=== PATIENT | male | born 1945 ===

== ENCOUNTER 2016-12-09 11:53 | Emergency (ER) | payer BC, MEDICARE ==
--- NOTE | 2016-12-09 12:07 | Emergency Department Record ---
History of Present Illness - General Chief Complaint: Hypertension Stated Complaint: HYPERTENSION Time Seen by Provider: 12/09/16 12:01 Source: Patient Mode of Arrival: Ambulatory Limitations: No limitations - History of Present Illness Initial Comments: 71 yo male presents with a concern about his blood pressure. He based that on not feeling well since Friday of last week. He has had some cough, some lightheadedness. No chest pain. He is not short of breath. He has had some loss of appetite. He states he tried to check his own pulse and could not find it. No history of CAD or abnormal heart heart rhythms. No history of ever having a stress test. His PCP is Dr Pinzon. No back or abdominal pain. No edema. MD Complaint: Lightheadedness -: Days(s) Timing: Unsure Description: Lightheadedness, Nausea History of Same: No History of Trauma: No Severity: Moderate Improves With: Remaining still, Rest Worsens With: Nothing Associated Symptoms: Denies other symptoms - Julio Coma Scale Eye Response: (4) Open spontaneously Motor Response: (6) Obeys commands Verbal Response: (5) Oriented Huger Total: 15 - Related Data Home Medications Medication Instructions Recorded Confirmed Last Taken Allopurinol [Allopurinol] 400 mg PO DAILY 12/09/16 12/09/16 12/08/16 Amlodipine Besylate [Norvasc] 5 mg PO DAILY 12/09/16 12/09/16 12/08/16 Aspirin 81 mg PO DAILY 12/09/16 12/09/16 12/08/16 Fenofibrate Nanocrystallized 145 mg PO DAILY 12/09/16 12/09/16 12/08/16 [Tricor] Losartan Potassium [Losartan 100 mg PO DAILY 12/09/16 12/09/16 12/08/16 Potassium] Simvastatin [Zocor] 10 mg PO DAILY 12/09/16 12/09/16 12/08/16 Allergies Allergy/AdvReac Type Severity Reaction Status Date / Time No Known Drug Allergies Allergy Verified 12/09/16 12:05 Review of Systems Constitutional: Denies: Chills, Fever, Malaise, Night sweats, Weakness Eyes: Denies: Eye discharge ENT: Denies: Congestion, Throat pain Respiratory: Reports: Cough, Dyspnea. Denies: Hemoptysis, Stridor, Wheezes Cardiovascular: Denies: Arrhythmia, Chest pain, Dyspnea on exertion, Edema, Palpitations, Syncope Endocrine: Denies: Fatigue, Polydipsia, Polyuria Gastrointestinal: Reports: Nausea. Denies: Abdominal pain, Diarrhea, Vomiting Genitourinary: Denies: Dysuria, Frequency, Hematuria Musculoskeletal: Denies: Arthralgia, Back pain, Neck pain Skin: Denies: Bruising, Change in color, Pruritus Neurological: Denies: Headache, Numbness, Vertigo, Weakness Psychiatric: Denies: Anxiety Hematological/Lymphatic: Denies: Blood Clots, Easy bleeding, Easy bruising, Swollen glands Physical Exam - General General Appearance: Alert, Oriented x3, Cooperative, No acute distress Limitations: No limitations - Head Head exam: Atraumatic, Normocephalic, Normal inspection - Eye Eye exam: Normal appearance, PERRL. negative: Conjunctival injection, Periorbital swelling - ENT ENT exam: Normal exam, Mucous membranes moist Ear exam: Normal external inspection Nasal Exam: Normal inspection Mouth exam: Normal external inspection Teeth exam: Normal inspection Throat exam: Normal inspection - Neck Neck exam: Normal inspection, Full ROM. negative: Tenderness, Thyromegaly - Respiratory Respiratory exam: Normal lung sounds bilaterally. negative: Respiratory distress - Cardiovascular Cardiovascular Exam: Normal rhythm, Normal heart sounds, Tachycardia. negative : Regular rate Peripheral Pulses: 2+: Radial (R), Radial (L) - GI/Abdominal GI/Abdominal exam: Soft. negative: Tenderness - Rectal Rectal exam: Deferred - exam: Deferred - Extremities Extremities exam: Normal inspection, Full ROM, Normal capillary refill. negative: Pedal edema, Tenderness - Back Back exam: Reports: Normal inspection, Full ROM. Denies: Muscle spasm, Rash noted, Tenderness - Neurological Neurological exam: Alert, Normal gait, Oriented X3, Reflexes normal - Psychiatric Psychiatric exam: Normal affect, Normal mood - Skin Skin exam: Dry, Intact, Normal color, Warm Course - Reevaluation(s) Reevaluation #1: The patient was given Adenosine It reviewed an underlying atrial flutter The patient has been having days of symptoms He will be heparinized and started on cardizem as well He has not seen a jig inspector in the past. 12/09/16 12:51 Reevaluation #2: I SW Dr Jackson of [facility] at [facility] We discussed thr rhythm and labs including Troponin 0.09 and BNP 2800, CR of 1.5 He will transfer to [facility] 12/09/16 14:08 Reevaluation #3: CXR was read as negative Stable for transfer to [facility] 12/09/16 14:53 Procedures - EKG Initial Date: 12/09/16 Time: 12:18 EKG Detail: SVT rate 174, intervals noraml, axis, normal, ST Ns changes.[facility] Medical Decision Making - Lab Data Result diagrams: 12/09/16 12:15 12/09/16 12:15 Disposition Disposition: Transfer Clinical Impression: Atrial flutter, SVT (supraventricular tachycardia) Disposition: Acute Care Hospital Transfer Transfer To: [facility] Reason For Transfer: SVT with A Flutter, No Cardiology at [facility] Accepting Physician: Manuel Time Discussed w/Accepting Physician: 14:12 Condition: (2) Stable Forms: Patient Portal Access Time of Disposition: 14:12
[2016-12-09] MEDS ORDERED: ASPIRIN 81 MG CHEWABLE TABLET PO ONE (12:08)
[2016-12-09 12:22] LABS: BASO % 0.1 % (0-6); EOS % 2.7 % (0-6); HEMATOCRIT 43.9 % (42.0-52.0); HEMOGLOBIN 15.2 gm/dl (14.0-18.0); LYMPH % 17.7 % (16-45); MEAN CELL VOLUME 84.4 fl (81-97); MEAN CORPUSCULAR HEMOGLOBIN 29.2 pg (27-33); MEAN CORPUSCULAR HGB CONC 34.6 g/dl (32-36); MEAN PLATELET VOLUME 10.4 fl (7.4-10.4); MONO % 10.5 % (0-9); PLATELET COUNT 253 K/uL (130-400); WHITE BLOOD COUNT W/O DIFF 7.3 K/uL (4.2-12.2)
[2016-12-09] MEDS ORDERED: ADENOSINE 6 MG/2 ML VIAL IVP ONE (12:22)
[2016-12-09 12:35] LABS: INR 0.94; PARTIAL THROMBOPLASTIN TIME 26.4 SECONDS (24.5-39.1); PROTHROMBIN TIME (PATIENT) 10.6 SECONDS (9.5-12.1)
[2016-12-09 12:36] LABS: ALB/GLOB RATIO 1.3 (1.1-1.8); ALBUMIN 4.3 gm/dL (3.5-5.0); ANION GAP 13.7 (7-16); BILIRUBIN,TOTAL 1.32 mg/dL (0.2-1.3); CARBON DIOXIDE 25.3 mmol/L (22-30); CREATININE 1.5 mg/dL (0.66-1.25); TOTAL PROTEIN 7.5 gm/dL (6.3-8.2)
[2016-12-09 12:48] LABS: CKMB 2.2 ug/L (0-6); TROPONIN I 0.093 ng/mL (0.00-0.034)
[2016-12-09] MEDS ORDERED: DILTIAZEM 25MG/5ML VIAL IV ONE (12:53)
[2016-12-09] MEDS ORDERED: HEPARIN SODIUM 1000 UNIT/1 ML 10ML VIAL IVP ONE (12:53)
[2016-12-09] MEDS ORDERED: HEPARIN SODIUM/D5W 25,000 UNITS/500 ML BAG IV SCH (13:00)
[2016-12-09] MEDS ORDERED: DILTIAZEM HCL 125 MG in 0.9 % SODIUM CHLORIDE 100ML 100 ML IV SCH (13:00)
[2016-12-09 13:07] LABS: THYROID STIMULATING HORMONE 2.13 uIU/ml (0.465-4.68)
--- NOTE | 2016-12-10 07:52 | RADIOLOGY REPORT ---
DATE: 12/09/2016. EXAM: SINGLE CHEST. HISTORY: Heart palpitations. TECHNIQUE: Single AP view of the chest was performed. FINDINGS: Heart size is normal. Lung perdue are clear. Osseus structures are normal. IMPRESSION: NO ACUTE DISEASE PROCESS. JOB NUMBER: [id number] MTDD
== END 2016-12-09 15:02 | disposition short-term general hospital (02) ==
LOC: ER 11:53
DX: I48.92 Unspecified atrial flutter (principal); I47.1 Supraventricular tachycardia; R42 Dizziness and giddiness; R11.0 Nausea; I10 Essential (primary) hypertension
CPT/HCPCS: 93041; 99285; 96365; 96366; 96375; 96368; 99284; 82550; 83735; 85025; 85730; 85610; 82553; 84484; 80053; 84443; 83880; 71010; 93005; 93010; J0153